=== PATIENT | female | born 1940 | race Caucasian/White ===

== ENCOUNTER → 2018-12-09 | Outpatient (CLI) | payer MEDICARE, OTHER | END | disposition home or self-care (01) | LOC: RAH 10:34 | PROVIDERS: ATTEND Internal Medicine | DX: K57.90 Diverticulosis of intestine, part unspecified, without perforation or abscess without bleeding (principal); E13.22 Other specified diabetes mellitus with diabetic chronic kidney disease; N18.9 Chronic kidney disease, unspecified; I70.90 Unspecified atherosclerosis; N28.1 Cyst of kidney, acquired; K44.9 Diaphragmatic hernia without obstruction or gangrene; K76.0 Fatty (change of) liver, not elsewhere classified; M47.815 Spondylosis without myelopathy or radiculopathy, thoracolumbar region | CPT/HCPCS: 74176 ==

== ENCOUNTER 2020-12-29 08:00 | Observation (INO) | payer MEDICARE ==
[~2020-12-29] VITALS: Ht 160 cm; Wt 64.9 kg
[2020-12-29 08:14] LABS: BASOPHILS % (AUTO) 1.1 % (0.0-5.0); EOSINOPHILS % (AUTO) 2.7 % (0.0-8.0); HEMATOCRIT 44.8 % (36-48); LYMPHOCYTES % (AUTO) 23.3 % (21.0-51.0); MEAN CORPUSCULAR HEMOGLOBIN 31.9 pg (27.0-33.0); MEAN CORPUSCULAR HGB CONC 32.8 g/dL (32.0-36.0); MEAN CORPUSCULAR VOLUME 97.2 fL (79-99); NEUTROPHILS % (AUTO) 63.7 % (40.0-77.0); PLATELET COUNT (AUTO) 177 K/uL (130-400); RED BLOOD CELL COUNT(AUTO) 4.61 MIL/uL (4.00-5.50); RED CELL DISTRIBUTION WIDTH 13.2 % (11.0-15.5); WHITE BLOOD COUNT (AUTO) 6.2 K/uL (4.8-10.8)
[2020-12-29] MEDS ORDERED: ASPIRIN 81MG CHEW TAB ONE (08:21)
[2020-12-29] MEDS ORDERED: NITROGLYCERIN 1GM OINT 1 INCH/1GM TD ONE (08:39)
[2020-12-29 08:49] LABS: BILIRUBIN,TOTAL 0.9 mg/dL (0.2-1.0); CREATININE 1.2 mg/dL (0.5-1.5); TOTAL PROTEIN, SERUM 7.6 g/dL (6.0-8.3)
[2020-12-29 09:06] LABS: INR 0.99 (0.85-1.15); PROTHROMBIN TIME 10.8 SEC (9.6-11.6)
[2020-12-29 09:07] LABS: PARTIAL THROMBOPLASTIN TIME 26.3 SEC (26.3-35.5)
[2020-12-29] MEDS ORDERED: KCL 20 MEQ ERTAB PO ONE (09:45)
[2020-12-29] MEDS ORDERED: 0.9%NACL 10ML VIAL IVP PRN (13:45)
[2020-12-29] MEDS ORDERED: DEXTROSE 50%-WATER 50 ML DISP.SYRIN IV PRN (13:45)
[2020-12-29] MEDS ORDERED: GLUCAGON 1MG KIT 1 MG ML IM PRN (13:45)
[2020-12-29] MEDS ORDERED: ALPRAZOLAM 0.25 MG TABLET ONE (15:25)
[2020-12-29 15:33] LABS: CREATINE KINASE, TOTAL 74 U/L (21-232); MYOGLOBIN 54 ng/mL (10-92); TROPONIN I < 0.04 ng/mL (0.00-0.06)
[2020-12-29] MEDS: INSULIN R PO SS1 SQ SCH ×2 (16:30→21:00)
[2020-12-29] MEDS: ALPRAZOLAM 0.25 MG TABLET PO SCH (22:00)
[2020-12-29] MEDS ORDERED: FAMOTIDINE 20MG TAB ONE (22:25)
[2020-12-29] MEDS ORDERED: ATORVASTATIN 40 MG TABLET ONE (22:26)
[2020-12-29 23:22] LABS: CREATINE KINASE, TOTAL 83 U/L (21-232); MYOGLOBIN 61 ng/mL (10-92); TROPONIN I < 0.04 ng/mL (0.00-0.06)
[2020-12-30 02:56] VITALS: BP 169/88
[2020-12-30 05:03] LABS: HEMATOCRIT 38.8 % (36-48); MEAN CORPUSCULAR HEMOGLOBIN 31.8 pg (27.0-33.0); MEAN CORPUSCULAR VOLUME 96.5 fL (79-99); RED BLOOD CELL COUNT(AUTO) 4.02 MIL/uL (4.00-5.50); WHITE BLOOD COUNT (AUTO) 7.6 K/uL (4.8-10.8)
[2020-12-30] MEDS ORDERED: METF-444 PO (06:00)
[2020-12-30] MEDS ORDERED: CLOP75TA32 PO (06:00)
[2020-12-30] MEDS ORDERED: AMLO2.5T4 PO (06:00)
[2020-12-30] MEDS ORDERED: ATOR-2 PO (06:00)
[2020-12-30] MEDS ORDERED: ISOS10TA8 PO (06:00)
[2020-12-30] MEDS ORDERED: OMEP40CA21 PO (06:00)
[2020-12-30] MEDS ORDERED: GLIM2TAB30 PO (06:00)
[2020-12-30] MEDS ORDERED: DULA0.75 SQ (06:00)
[2020-12-30] MEDS ORDERED: LEVO25CA4 PO (06:00)
[2020-12-30] MEDS: INSULIN R PO SS1 SQ SCH ×3 (06:05→21:00)
[2020-12-30 06:29] LABS: CARBON DIOXIDE 24 mmol/L (21-32); CHLORIDE 106 mmol/L (101-111); CREATINE KINASE, TOTAL 78 U/L (21-232); CREATININE 1.3 mg/dL (0.5-1.5); GLOMERULAR FILTR. RATE CALC 42 mL/min (>60); GLUCOSE,RANDOM 122 mg/dL (70-105); MYOGLOBIN 56 ng/mL (10-92); SODIUM SERUM 144 mmol/L (136-145); TROPONIN I < 0.04 ng/mL (0.00-0.06); UREA NITROGEN, BLOOD 18 mg/dL (7-18)
[2020-12-30 06:34] LABS: POTASSIUM 2.7 mmol/L (3.5-5.1)
[2020-12-30] MEDS ORDERED: POTASSIUM CHLORIDE 20MEQ/100ML 100 ML IV PRN (07:15)
[2020-12-30] MEDS ORDERED: LIDOCAINE HCL-MPF 1% 2ML VIAL IV PRN ×2 (07:15)
[2020-12-30 07:30] VITALS: BP 168/88
[2020-12-30] MEDS ORDERED: DULAGLUTIDE 0.75 MG SQ SCH (09:00)
[2020-12-30] MEDS: ALPRAZOLAM 0.25 MG TABLET PO SCH ×4 (10:26→21:31)
[2020-12-30] MEDS ORDERED: METFORMIN HCL 500 MG TABLET PO SCH (10:57)
[2020-12-30 11:00] VITALS: BP 148/92
[2020-12-30] MEDS: ISOSORBIDE MONO 30MG SR TAB PO SCH ×2 (11:00→11:29)
[2020-12-30] MEDS: LEVOTHYROXINE 25 MCG TABLET PO SCH (11:01)
[2020-12-30] MEDS: ASPIRIN 81MG CHEW TAB PO SCH (11:28)
[2020-12-30] MEDS: PANTOPRAZOLE 40 MG TAB DR PO SCH (11:28)
[2020-12-30] MEDS: AMLODIPINE 2.5 MG TAB PO SCH (11:28)
[2020-12-30] MEDS: GLIMEPIRIDE 2 MG TABLET PO SCH ×2 (11:29→21:32)
[2020-12-30] MEDS: CLOPIDOGREL 75MG TAB PO SCH (11:30)
[2020-12-30] MEDS: POTASSIUM CHLORIDE 10% ELIXIR 20 MEQ/15 ML UDCUP PO PRN ×4 (13:41→21:33)
[2020-12-30 16:00] VITALS: BP 135/83
[2020-12-30 20:00] VITALS: BP 125/86
[2020-12-30] MEDS ORDERED: ATORVASTATIN 40 MG TABLET PO SCH (21:00)
[2020-12-30 23:45] VITALS: BP 151/93
[2020-12-31 04:00] VITALS: BP 141/78
[2020-12-31 05:47] LABS: HEMATOCRIT 40.2 % (36-48); MEAN CORPUSCULAR HEMOGLOBIN 31.4 pg (27.0-33.0); MEAN CORPUSCULAR HGB CONC 32.1 g/dL (32.0-36.0); MEAN CORPUSCULAR VOLUME 97.8 fL (79-99); RED BLOOD CELL COUNT(AUTO) 4.11 MIL/uL (4.00-5.50); RED CELL DISTRIBUTION WIDTH 13.2 % (11.0-15.5); WHITE BLOOD COUNT (AUTO) 6.1 K/uL (4.8-10.8)
[2020-12-31] MEDS: INSULIN R PO SS1 SQ SCH ×2 (05:58→11:30)
[2020-12-31 06:17] LABS: CREATININE 1.1 mg/dL (0.5-1.5); POTASSIUM 3.9 mmol/L (3.5-5.1)
[2020-12-31 07:30] VITALS: BP 177/97
[2020-12-31] MEDS: ASPIRIN 81MG CHEW TAB PO SCH (08:44)
[2020-12-31] MEDS: ISOSORBIDE MONO 30MG SR TAB PO SCH ×2 (08:45→12:34)
[2020-12-31] MEDS: PANTOPRAZOLE 40 MG TAB DR PO SCH (08:45)
[2020-12-31] MEDS: CLOPIDOGREL 75MG TAB PO SCH (08:45)
[2020-12-31] MEDS: GLIMEPIRIDE 2 MG TABLET PO SCH (08:45)
[2020-12-31] MEDS: AMLODIPINE 2.5 MG TAB PO SCH (08:45)
[2020-12-31] MEDS: LEVOTHYROXINE 25 MCG TABLET PO SCH (08:45)
[2020-12-31] MEDS: ALPRAZOLAM 0.25 MG TABLET PO SCH (08:46)
[2020-12-31 11:00] VITALS: BP 151/89
== END 2020-12-31 14:10 | disposition home or self-care (01) ==
LOC: EDH 08:00 → EDHIP 09:50 → 3BH 12-30 01:26
PROVIDERS: ADMIT Internal Medicine; ATTEND Internal Medicine
DX: R07.89 Other chest pain (principal); I25.110 Atherosclerotic heart disease of native coronary artery with unstable angina pectoris; I10 Essential (primary) hypertension; E78.5 Hyperlipidemia, unspecified; E11.9 Type 2 diabetes mellitus without complications; K21.9 Gastro-esophageal reflux disease without esophagitis; H81.399 Other peripheral vertigo, unspecified ear; E78.00 Pure hypercholesterolemia, unspecified; I25.2 Old myocardial infarction; F41.9 Anxiety disorder, unspecified; E87.6 Hypokalemia; Z95.5 Presence of coronary angioplasty implant and graft; Z79.899 Other long term (current) drug therapy
CPT/HCPCS: 36415 ×3; 71045; 80048 ×2; 80053; 82550 ×4; 82948 ×8; 83874 ×3; 84484 ×5; 85025; 85027 ×2; 85610; 85651; 85730; 86140; 93005 ×4; 97039 ×2; 97116; 97161; 97530; 99285; G0378 ×52; G8978; G8979; G8980; G8981; G8982; G8983; J1815

== ENCOUNTER → 2023-03-07 | Outpatient (CLI) | payer MEDICARE ==
[~2023-03-07] MED LIST: AMLO2.5T4 PO; ATOR-2 PO; CLOP75TA32 PO; DULA0.75 SQ; GLIM2TAB30 PO; ISOS10TA8 PO; LEVO25CA4 PO; METF-444 PO; OMEP40CA21 PO
== END | disposition home or self-care (01) ==
LOC: RAH 10:05
PROVIDERS: ATTEND Internal Medicine
DX: M25.561 Pain in right knee (principal); Z96.651 Presence of right artificial knee joint
CPT/HCPCS: 73560